=== PATIENT | male | born 1995 | race Caucasian/White ===

== ENCOUNTER 2017-08-05 12:20 | Emergency (ER) | payer MEDICAID | END 2017-08-05 14:37 | disposition home or self-care (01) | LOC: D.ER 12:20 | DX: J02.0 Streptococcal pharyngitis (principal) ==

== ENCOUNTER 2017-10-02 06:57 | Emergency (ER) | payer MEDICAID | END 2017-10-02 07:20 | disposition home or self-care (01) | LOC: D.ER 06:57 | DX: J02.9 Acute pharyngitis, unspecified (principal) ==